=== PATIENT | female | born 1935 | race Caucasian/White ===

== ENCOUNTER 2016-06-07 06:34 | Day surgery (SDC) | payer OTHER ==
[2016-06-06 11:12] VITALS: BP 144/67
[2016-06-06 11:54] LABS: BLOOD UREA NITROGEN 19 mg/dL (7-18)
[2016-06-06 11:57] LABS: ASPARTATE AMINO TRANSFERASE 24 U/L (15-37)
[~2016-06-07] VITALS: Ht 165.1 cm; Wt 63.6 kg
[~2016-06-07 06:34] MED LIST: ASPI-496 PO; CALC-141 PO; IBAN150T PO; METO25TA35 PO; MULT1TAB9 PO; ONDA4TAB10 PO; SIMV10TA3 PO
[2016-06-07] MEDS ORDERED: SODIUM CHLORIDE 0.9% 1,000 ML IV SCH (06:38)
[2016-06-07] MEDS ORDERED: CALC-649 PO (07:13)
[2016-06-07] MEDS ORDERED: MULT-658 PO (07:15)
[2016-06-07] MEDS ORDERED: FENTANYL PF 100 MCG/2ML ONE (07:49)
[2016-06-07] MEDS ORDERED: MIDAZOLAM 1 MG/ML, 5ML ONE (07:49)
[2016-06-07] MEDS ORDERED: LIDOCAINE 2%, 20ML ONE (07:50)
[2016-06-07] MEDS ORDERED: ISOPROTERENOL 0.2MG/ML, 5ML ONE (07:50)
[2016-06-07] MEDS ORDERED: ADENOSINE 6 MG/2 ML ONE (07:50)
== END 2016-06-07 14:15 | disposition home or self-care (01) ==
LOC: CACL 06:34
PROVIDERS: ATTEND Internal Medicine Cardiovascular Disease
DX: I47.1 Supraventricular tachycardia (principal); F10.10 Alcohol abuse, uncomplicated; E78.4 Other hyperlipidemia; J30.9 Allergic rhinitis, unspecified; Z79.01 Long term (current) use of anticoagulants
CPT/HCPCS: 36415; 71020; 80053; 85025; 85610; 85730; 93005; 93613; 93621; 93623; 93653; C1730; C1766; C1894; C2630; J2250; J3010; J3490; J0153

== ENCOUNTER 2016-12-25 07:26 | Day surgery (SDC) | payer OTHER ==
[~2016-12-25 07:26] MED LIST changes: +CALC-649 PO; +MULT-658 PO
[2016-12-25] MEDS ORDERED: LIDOCAINE 2%, 20ML ONE (10:02)
== END 2016-12-25 10:50 | disposition home or self-care (01) ==
LOC: CACL 07:26
PROVIDERS: ATTEND Internal Medicine Cardiovascular Disease
DX: Z45.09 Encounter for adjustment and management of other cardiac device (principal)
CPT/HCPCS: 33284; J3490

== ENCOUNTER → 2017-12-15 | Outpatient (CLI) | payer OTHER ==
[~2017-12-15] MED LIST changes: +ACET325T14 PO; +IBUP-1623 PO
== END | disposition home or self-care (01) ==
LOC: CVU 12:45
PROVIDERS: ATTEND Internal Medicine Cardiovascular Disease
DX: R09.89 Other specified symptoms and signs involving the circulatory and respiratory systems (principal); I65.29 Occlusion and stenosis of unspecified carotid artery; I10 Essential (primary) hypertension
CPT/HCPCS: 93880